=== PATIENT | female | born 1960 | race Caucasian/White ===

== ENCOUNTER 2016-03-15 20:54 | Emergency (ER) | payer SELFPAY ==
[~2016-03-15] VITALS: Ht 162.6 cm; Wt 59.0 kg
[~2016-03-15 20:54] MED LIST: IBUP-238 PO; LORT5TAB PO; Z.0.NO CURRENT MEDS
[2016-03-15 20:55] VITALS: BP 132/84; PULSE 90; RESP 16; TEMP 98.1; O2SAT 98
[2016-03-15] MEDS ORDERED: PARO1CAP PO (21:06)
[2016-03-15] MEDS ORDERED: HYDR2.5%T RECTAL (21:46)
[2016-03-15] MEDS ORDERED: LIDO3CRE2 TOPICAL (21:46)
--- NOTE | 2016-03-15 21:51 | PD ---
HPI Chief Complaint: GI Complaint Time Seen by Provider: 21:46 Travel History International Travel<30 days: No Contact w/Intl Traveler<30days: No Traveled to known affect area: No History of Present Illness HPI 55-year-old female that presents to the ED for evaluation of possible hemorrhoid versus prolapse rectum. Per patient she had 2 bouts of diarrhea today. She denies any pain with it but she noted that she had some discomfort on her rectum and she felt there was something in there and her looked and it looked like either intestine was coming out of versus a hemorrhoid. She has never had hemorrhoids herself or any other medical problems. She denies any surgeries to her abdomen. She denies any straining. No chest pain or shortness of breath. No fevers chills or sweats. Per patient she did have some bleeding initially with the pain but she has not had any since. She has an allergy to codeine and penicillin. Takes no blood thinners. Pain was 4 out of 10. PFSH Past Medical History Medical History: Denies Significant Hx Diminished Hearing: No Menopausal: Yes Social History Alcohol Use: Yes (occ/monthly) Tobacco Use: No Substance Use: No Allergies-Medications (Allergen,Severity, Reaction): Coded Allergies: Codeine (Verified Allergy, Severe, Itching, 03/15/16) Penicillin (Verified Allergy, Severe, Itching, 03/15/16) Reported Meds & Prescriptions Reported Meds & Active Scripts Active Reported Brisdelle (Paroxetine Mesylate) 7.5 Mg Cap 1 Tab PO DAILY Review of Systems Except as stated in HPI: all other systems reviewed are Neg Physical Exam Narrative GENERAL: SKIN: Warm and dry. HEAD: Atraumatic. Normocephalic. EYES: Pupils equal and round. No scleral icterus. No injection or drainage. ENT: No nasal bleeding or discharge. Mucous membranes pink and moist. NECK: Trachea midline. No JVD. CARDIOVASCULAR: Regular rate and rhythm. RESPIRATORY: No accessory muscle use. Clear to auscultation. Breath sounds equal bilaterally. GASTROINTESTINAL: Abdomen soft, non-tender, nondistended. Hepatic and splenic margins not palpable. Bowel exam: The with female nurse present. Patient has a circular black hemorrhoid that is protruding from the anus with what appears to be mucosa from the anus itself protruding around the hemorrhoid. Slightly tender to touch. Able to reduce it with minimal discomfort. MUSCULOSKELETAL: Extremities without clubbing, cyanosis, or edema. No obvious deformities. NEUROLOGICAL: Awake and alert. No obvious cranial nerve deficits. Motor grossly within normal limits. Five out of 5 muscle strength in the arms and legs. Normal speech. PSYCHIATRIC: Appropriate mood and affect; insight and judgment normal. Data Data Last Documented VS Vital Signs Date Time Temp Pulse Resp B/P Pulse Ox O2 Delivery O2 Flow Rate FiO2 03/15/16 20:55 98.1 90 16 132/84 98 MDM Medical Decision Making Medical Screen Exam Complete: Yes Emergency Medical Condition: Yes Medical Record Reviewed: Yes Differential Diagnosis Internal hemorrhoid versus thrombosed hemorrhoid versus rectal prolapse Narrative Course 55-year-old female that presents to the ED for evaluation of prolapse internal hemorrhoid. Patient was properly examined and was found to have signs and symptoms consistent with appears to be a grade 3 prolapse internal hemorrhoid. I was able to successfully reduce the hemorrhoid back into the anal canal with minimal discomfort for the patient. Case was discussed with Dr. Frances's for colorectal surgery who recommends hemorrhoidal creams and follow up with a colorectal surgeon if this becomes more progressively worse or keeps coming out for possible surgery although not necessarily. This was told to the patient and who agree with plan. Patient was given prescription for Anusol and out of control topical. Patient was told to only use if needed. Use Maalox as needed. Follow with PCP. See ED worsening symptoms. Diagnosis Primary Impression: Internal prolapsed hemorrhoids Referrals: Casper Frances MD Patient Instructions: General Instructions Additional Instructions: Take medications as prescribed. Only use if needed. Follow with Dr. Boothe next week if it keeps coming out, pain worsens or is not reducible anymore. See ED for worsening symptoms. Med/Other Pt SpecificInfo: Prescription(s) given Scripts Lidocaine Topical 3 % Cream1 Applic TOPICAL BID PRN (PAIN SCALE 1 TO 10) #1 TUBE Prov:Juan Villarreal MD 03/15/16 Hydrocortisone Rectal (Anusol-Hc Rectal)2.5% Cream1 Applic RECTAL Q6H PRN ( HEMORRHOIDS) #30 GM Ref 0 Prov:Juan Villarreal MD 03/15/16 Disposition: 01 DISCHARGE HOME Condition: Stable Ramesh Moreno Mar 15, 2016 21:51
== END 2016-03-15 22:20 | disposition home or self-care (01) ==
LOC: NEPC 20:54
DX: K64.8 Other hemorrhoids (principal)
CPT/HCPCS: 99283